=== PATIENT | female | born 1965 | race Caucasian/White ===

== ENCOUNTER 2025-06-03 09:30 | Emergency (ER) | payer SELFPAY ==
[2025-06-03] VITALS (8 sets, daily range): BP systolic 112–142; BP diastolic 59–74; PULSE 65–84; RESP 16–20; TEMP 36.7; O2SAT 90–97; BMI 33.2
--- NOTE | 2025-06-03 10:00 | ED_ITS ---
HPI - Back Pain/Injury 2 General: Chief Complaint: Back Pain/Injury Stated Complaint: lower back pain on R side Time Seen by Provider: 06/03/25 09:55 History of Present Illness: 60-year-old female presents emergency ro om complaining of right flank and lower back pain she did fall a few days ago stepped into a hole states for the last 4 days she has had severe back pain that radiates down her flank towards the groin area. She did not fall completely to the ground did not strike her head she denies any other injuries. She taken [id number] medications for it no dysuria urgency or frequency no hematuria. Associated symptoms: Deny abdominal pain, chills, dysuria, fever(s) or urinary urgency Related Data Previous Rx's ?Medication ?Instructions ?Recorded diclofenac sodium 75 mg 75 mg PO Q12H PRN pain #20 t abs 06/03/25 tablet,delayed release prednisone 20 mg tablet 20 mg PO TID #15 tabs tizanidine 4 mg tablet 4 mg PO Q6H PRN muscle spast icity 06/03/25 #20 tabs Allergies Allergy/AdvReac Type Severity Reaction Status Date / Time No Known Allergies Allergy Verified 06/03/25 09:39 Review of Systems 2 Const: Denies: fever(s) or chills Card: Denies: chest pain Resp: Denies: dyspnea GI: Denies: abdominal pain : Reports: flank pain; Denies: dysuria, urinary frequency or urinary urgency Musc: Reports: back pain; Denies: neck pain Skin/Breast: Denies: rash Physical Exam 2 Const: GENERAL APPEARANCE: cooperative ORIENTATION/CONSCIOUSNESS: Yes awake, Yes oriented to person, Yes oriented to place and Yes oriented to time HENMT: COMMON NORMALS: normocephalic, atraumatic and hearing grossly normal bilaterally HEAD & SCALP: normocephalic and atraumatic Resp: COMMON NORMALS: normal respiratory effort, No retractions, No use of accessory muscles and clear to auscultation bilaterally AUSCULTATION: clear to auscultation bilaterally Cardio: COMMON NORMALS: regular rate, regular rhythm and No murmurs present (Cardio) RATE: regular rate RHYTHM: regular rhythm GI: COMMON NORMALS: Soft to palpation and No hepatosplenomegaly present A USCULTATION: Yes normoactive bowel sounds PALPATION: Yes Soft to palpation, No Tenderness to palpation present (GI), No Guarding due to palpation present (GI) and Yes No hepatosplenomegaly present Extremity: COMMON NORMALS: normal to inspection, capillary refill normal, no clubbing, cyanosis or edema, no calf tenderness and no pedal edema Neuro: SENSORIUM/ORIENTATION: Yes oriented to person, Yes oriented to place and Yes oriented to time Skin: COMMON NORMALS: no rashes or lesions noted GENERAL SKIN EXAM: no rashes or lesions noted Course 2 Vital Signs: Vital signs: Vital Signs Temperature 98.1 F 06/03/25 09:33 Pulse Rate 65 06/03/25 12:48 Respiratory Rate 16 06/03/25 11:56 Blood Pressure 112/61 06/03/25 12:48 Pulse Oximetry 90 06/03/25 12:48 Oxygen Delivery Me thod Room Air 06/03/25 09:33 MDM - Back Pain/Injury Medical Decision Making CBC UA normal no signs of cystitis no signs of nephrolithiasis no hematuria. Patient's back pain is improved will discharge home with diclofenac prednisone taper tizanidine follow-up with primary care. Medical Records I reviewed the patient's medical records. Labs I reviewed the patient's lab results. 06/03/25 10:12 06/03/25 10:12 Laboratory Results WBC 6.67 10^3/uL (3.29-11.43) 06/03/25 10:12 RBC 4.07 10^6/uL (3.85-5.65) 06/03/25 10:12 Hgb 12.60 g/dL (11.27-16.99) 06/03/25 10:12 Hct 38.6 % (36-47) 06/03/25 10:12 MCV 94.8 fl (85-98) 06/03/25 10:12 MCH 31.0 pg (27-33) 06/03/25 10:12 MCHC 32.6 g/dL (30-55) 06/03/25 10:12 RDW 13.1 % (12.1-15.1) 06/03/25 10:12 Plt Count 292 10^3/cmm (157-399) 06/03/25 10:12 MPV 10.2 fL (7.4-10.4) 06/03/25 10:12 Neut % (Auto) 66.6 % 06/03/25 10:12 Lymph % (Auto) 18.0 % 06/03/25 10:12 [place] % (Auto) 9.9 % 06/03/25 10:12 Eos % (Auto) 4.5 % 06/03/25 10:12 Baso % (Auto) 0.9 % 06/03/25 10:12 Neut # (Auto) 4.44 10^3/uL (1.8-7.7) 06/03/25 10:12 Lymph # (Auto) 1.2 10^3/uL (0.8-4.8) 06/03/25 10:12 [place] # (Auto) 0.7 10^3/uL (0.2-0.9) 06/03/25 10:12 Eos # (Auto) 0.3 10^3/uL (0.0-0.8) 06/03/25 10:12 Baso # (Auto) 0.1 10^3/uL (0.0-0.1) 06/03/25 10:12 Nucleated RBC % (auto) 0 % 06/03/25 10:12 Nucleated RBCs # 0.0 /100WBC 06/03/25 10:12 Sodium 138 mmol/L (136-145) 06/03/25 10:12 Potassium 4.3 mmol/L (3.5-5.1) 06/03/25 10:12 Chloride 101 mmol/L (98-107) 06/03/25 10:12 Carbon Dioxide 23 mmol/L (22-29) 06/03/25 10:12 Anion Gap 18.3 (5-19) 06/03/25 10:12 BUN 8 mg/dL (6-20) 06/03/25 10:12 Creatinine 0.7 mg/dL (0.5-0.9) 06/03/25 10:12 GFR Calculation 85.9 mL/min (90-130) L 06/03/25 10:12 Glucose 137 mg/dL (65-115) H 06/03/25 10:12 Calculated Osmolality 286 mOsm/kg (285-295) 06/03/25 10:12 Calcium 9.2 mg/dL (8.5-10.5) 06/03/25 10:12 Total Bilirubin 0.6 mg/dL (0.15-1.2) 06/03/25 10:12 AST 14 U/L (0-32) 06/03/25 10:12 ALT 10 U/L (0-33) 06/03/25 10:12 Alkaline Phosphatase 101 U/L (35-105) 06/03/25 10:12 Total Protein 7.1 g/dL (6.6-8.7) 06/03/25 10:12 Albumin 4.4 g/dL (3.5-5.2) 06/03/25 10:12 Globulin 2.7 g/dL (1.3-4.6) 06/03/25 10:12 Urine Color [place] (Yellow) A 06/03/25 09:50 Urine Appearance Clear (CLEAR) 06/03/25 09:50 Urine pH 5.5 (5-7) 06/03/25 09:50 Ur Specific [place] 1.014 (1.005-1.030) 06/03/25 09:50 Urine Protein Negative (Negative) 06/03/25 09:50 Urine Glucose (UA) Negative (Normal) 06/03/25 09:50 Urine Ketones Negative (Negative) 06/03/25 09:50 Urine Blood Negative (Negative) 06/03/25 09:50 Urine Nitrate Negative (Negative) 06/03/25 09:50 Urine Bilirubin Negative (Negative) 06/03/25 09:50 Urine Urobilinogen 0.2 mg/dL (Negative) 06/03/25 09:50 Ur Leukocyte Esterase Negative (Negative) 06/03/25 09:50 Amorphous Sediment Not Reportable 06/03/25 09:50 No radiology studies performed this visit Discharge Plan Discharge Patient Disposition: Home Clinical Impression: Strain of lumbar region Condition: Stable Prescriptions: New tizanidine 4 mg tablet 4 mg PO Q6H PRN (Reason: muscle spasticity) Qty: 20 0RF Rx Instructions: do not exceed 3 doses per 24 hrs prednisone 20 mg tablet 20 mg PO TID Qty: 15 0RF Rx Instructions: 1 p.o. 3 times daily x3 days, 1 p.o. twice daily x2 days, 1 p.o. daily x2 days diclofenac sodium 75 mg tablet,delayed release (DR/EC) 75 mg PO Q12H PRN (Reason: pain) Qty: 20 0RF Discharge Orders: Discharge ED (Routine); Ordered 06/03/25 Ordered By: Mike Armas Discharge Diet: Usual diet Discharge Activity: Increase activity as tolerated Patient Instructions: Acute Low Back Pain (ED), Lower Back Exercises (ED), Opioid Safety, Pain Management, Patient Portal & Lesa Instructions Activity Restrictions/Additional Instructions: Thank you for choosing [facility] for your healthcare needs today. It is very important that you follow up as instructed or that you return to the Emergency Department should you have concerns or if your condition changes or worsens in any way. Emergency department visits are focused on emergent conditions, in some cases you may require further evaluation on an outpatient basis. You are seen emergency room low back pain. No sign of infection urine is normal white count normal your other chemistry panels were normal. You are discharged home with steroid taper diclofenac and muscle relaxer tizanidine. Follow-up with your primary care doctor if not beginning to improve. You are also given exercises to use as needed for low back pain. (Please note that included in your discharge packet is information concerning opioid safety and pain management. This information is given to all patients were discharged from the ER regardless of their discharge diagnosis or the medicines they usually take or are prescribed.) Print Language: Japanese Coding Level of Care Code ED National Insurance Officer for Donna Fitzpatrick
[2025-06-03 10:02] LABS: Add Urine Microscopic? NO
[2025-06-03 10:06] LABS: Glucose Urine UA Negative (Normal); Nitrate Urine Negative (Negative); Specific Gravity, Urine 1.014 (1.005-1.030)
[2025-06-03 10:09] LABS: Charge for UA Resulting for Rev
[2025-06-03 10:25] LABS: Hematocrit 38.6 % (36-47); Hemoglobin 12.60 g/dL (11.27-16.99); Mean Corpuscular HGB Conc 32.6 g/dL (30-55); Mean Corpuscular Hemoglobin 31.0 pg (27-33); Mean Corpuscular Volume 94.8 fl (85-98); Nucleated Red Blood Cells % 0 %; Platelet Count 292 10^3/cmm (157-399); Red Blood Count 4.07 10^6/uL (3.85-5.65); White Blood Count 6.67 10^3/uL (3.29-11.43)
[2025-06-03] MEDS: morphine 4 mg/mL SDV 1 mL IVP ×2 (10:35→11:56)
[2025-06-03 10:42] LABS: Alanine Aminotransferase 10 U/L (0-33); Albumin Level 4.4 g/dL (3.5-5.2); Alkaline Phosphatase 101 U/L (35-105); Anion Gap 18.3 (5-19); Aspartate Amino Transferase 14 U/L (0-32); Blood Urea Nitrogen 8 mg/dL (6-20); Calcium 9.2 mg/dL (8.5-10.5); Carbon Dioxide 23 mmol/L (22-29); Chloride 101 mmol/L (98-107); Creatinine Clr Calc Pharmacy 80.4100; Globulin 2.7 g/dL (1.3-4.6); Glucose 137 mg/dL (65-115); Osmolality Calculated 286 mOsm/kg (285-295); Potassium 4.3 mmol/L (3.5-5.1); Sodium 138 mmol/L (136-145); Total Protein 7.1 g/dL (6.6-8.7)
== END 2025-06-03 12:51 | disposition home or self-care (01) ==
PROVIDERS: Emergency Provider Family Medicine
DX: S39.012A Strain of muscle, fascia and tendon of lower back, initial encounter (principal); W18.42XA Slipping, tripping and stumbling without falling due to stepping into hole or opening, initial encounter
CPT/HCPCS: 80053; 81003; 85025; 96372; 96374; 96375; 96376; 99284; J1100; J1885; J2270